=== PATIENT | male | born 1960 | race Caucasian/White ===

== ENCOUNTER → 2021-07-16 15:35 | Outpatient (BNVA) | payer OTHER, SELFPAY | PROVIDERS: Referring Provider Nurse Practitioner Family; Visit Provider Specialist | DX: G56.22 Lesion of ulnar nerve, left upper limb (principal) | CPT/HCPCS: 95908 ==

== ENCOUNTER 2022-07-02 17:35 | Outpatient (CLI) | payer OTHER, SELFPAY ==
--- NOTE | 2022-07-02 17:56 | XRR_ITS ---
PROCEDURE INFORMATION: Exam: XR Left Foot Exam date and time: 07/02/2022 5:58 PM Age: 61 years old Clinical indication: Pain; Foot; Left; Additional info: Lt. Heel pain TECHNIQUE: Imaging protocol: Radiologic exam of the Left foot. Views: 3 or more views. COMPARISON: No relevant prior studies available. FINDINGS: Bones/joints: Small osseous spur of the calcaneus. Negative for fracture. Negative for erosion. Unremarkable joint spaces. Soft tissues: Normal. XR/XR foot LT min 3V* [id number] IMPRESSION: No acute findings.
== END 2022-07-02 17:36 | disposition home or self-care (01) ==
PROVIDERS: PCP Nurse Practitioner Family; Visit Provider Nurse Practitioner Family
DX: M79.672 Pain in left foot (principal)
CPT/HCPCS: 73600; 73630

== ENCOUNTER → 2022-07-04 08:41 | Outpatient (BNVA) | payer OTHER, SELFPAY | PROVIDERS: PCP Nurse Practitioner Family; Referring Provider Family Medicine Adult Medicine; Visit Provider Student in an Organized Health Care Education/Training Program | DX: X50.9XXA Other and unspecified overexertion or strenuous movements or postures, initial encounter (principal); M72.2 Plantar fascial fibromatosis; S82.831A Other fracture of upper and lower end of right fibula, initial encounter for closed fracture | CPT/HCPCS: 73610 ==

== ENCOUNTER 2022-07-19 11:13 | Outpatient (CLI) | payer OTHER, SELFPAY ==
--- NOTE | 2022-07-19 11:50 | MR_ITS ---
WS: [id number] INDICATION: Lateral foot pain TECHNIQUE: MR of the RIGHT foot without gadolinium enhancement. Sagittal PD, sagittal STIR, axial PD, axial T1, coronal PD, coronal T2 fat sat FINDINGS: Moderate soft tissue edema worse on the lateral malleolus. Normal ankle mortise. Small oste ochondral defect involving the medial aspect of the talar dome. No significant underlying edema. Plan tar calcaneal spurring. Acute avulsion at the tip of the lateral malleolus. High-grade tears involvin g the anterior and posterior talofibular ligaments. Avulsion tip of the lateral malleolus with edema. Diffuse edema involving the distal fibula. Ankle mortise is preserved. Normal medial malleolus. Tibi ofibular ligaments appear intact. Distal Achilles is normal in appearance. Normal bone marrow signal in the calcaneus. Normal talonavic ular articulation. Normal cuboid and base of the 5th metatarsal. Normal cuneiforms. Increased signal with acute tears involving the peroneus longus and brevis. Peroneal longus tear at the level of the p eroneal tubercle. Small amount of tenosynovitis along the tibialis posterior. Extensor and flexor compartment tendons a re otherwise normal in appearance. MR/MR foot RT wo con* [id number] IMPRESSION: 1. Acute avulsion fracture with edema involving the tip of the lateral malleol us with diffuse edema involving the distal fibula and the avulsed fragment. 2. High-grade tears with diffuse edema involving the anterior and posterior ta lofibular ligaments. 3. Acute tears involving the peroneus longus and brevis. 4. Diffuse edema involving the ankle soft tissues worse about the lateral mall eolus and lateral foot soft tissues. 5. Small osteochondral defect involving the medial aspect of the talar dome. N o significant underlying edema. This may be chronic. 6. Small joint effusion. 7. Small amount of tenosynovitis along the tibialis posterior. 8. Distal Achilles appears normal. 9. Plantar calcaneal spurring.
== END 2022-07-19 11:14 | disposition home or self-care (01) ==
PROVIDERS: PCP Nurse Practitioner Family; Visit Provider Nurse Practitioner Family
DX: S99.911A Unspecified injury of right ankle, initial encounter (principal); S99.921A Unspecified injury of right foot, initial encounter; M25.474 Effusion, right foot; M65.871 Other synovitis and tenosynovitis, right ankle and foot; R60.0 Localized edema
CPT/HCPCS: 73610; 73718

== ENCOUNTER → 2023-12-29 13:09 | Outpatient (BNVA) | payer OTHER, SELFPAY | PROVIDERS: PCP Nurse Practitioner Family; Visit Provider Nurse Practitioner Family | DX: L57.0 Actinic keratosis (principal); D22.5 Melanocytic nevi of trunk; L81.4 Other melanin hyperpigmentation; L85.3 Xerosis cutis; L57.8 Other skin changes due to chronic exposure to nonionizing radiation | CPT/HCPCS: 17000; 99214 ==

== ENCOUNTER 2024-01-13 12:55 | Outpatient (CLI) | payer OTHER, SELFPAY ==
--- NOTE | 2024-01-13 13:01 | MR_ITS ---
WS: [id number] MRI HEAD WITH CONTRAST TECHNIQUE: Sagittal T1, T2 axial, T2 axial FLAIR, axial susceptibility weighted imaging, axial diffus ion weighted images, and coronal T2 images were obtained. Pre and post-T1 axial and post T1 coronal i mages. ADC and FSPGR images. CLINICAL INFORMATION: ALTERED MENTAL STATUS COMPARISON: None. FINDINGS: Patchy T2 signal normality involving the RIGHT frontal lobe and RIGHT insula compatible with edema. M ild associated localized mass effect. Mild mass effect on the RIGHT lateral ventricle. No midline flakita ft or hydrocephalus. A few small serpiginous patchy areas of enhancement within the area of edema. Ed jai extends into the RIGHT insula and RIGHT operculum. Normal posterior fossa. Normal vascular flow voids at the skull base. No extra-axial fluid collection s. Paranasal sinuses and mastoid air cells are well aerated. Normal optic chiasm and pituitary infund ibulum. Normal cavernous sinuses and Meckel's cave. IMPRESSION: 1. Moderate diffuse edema within the RIGHT posterior frontal lobe extending into the RIGHT frontal o perculum and insula with mild associated mass effect. No midline shift. Small amount of associated pa tchy enhancement. 2. Differential considerations include subacute RIGHT MCA territory infarct, infiltrative neoplasm, or lymphoma. Recommend correlation with clinical history and onset. 3. Otherwise recommend short interval follow-up to assess evolution in 6 to 8 weeks with MRI head wi thout and with gadolinium enhancement. MRA head could also be obtained at that time. 4. No other acute findings. Notified Mulu Maxwell MD at 01/13/2024 2:37 PM.
[2024-01-13] MEDS: gadobenate dimeglumine 20 mL vial IV (13:39)
== END 2024-01-13 12:56 | disposition home or self-care (01) ==
LOC: RAD 12:56
PROVIDERS: PCP Family Medicine; Visit Provider Family Medicine
DX: R41.82 Altered mental status, unspecified (principal)
CPT/HCPCS: 70553; A9577

== ENCOUNTER → 2024-02-10 14:48 | Outpatient (BNVA) | payer OTHER, SELFPAY | PROVIDERS: PCP Family Medicine; Referring Provider Family Medicine; Visit Provider Student in an Organized Health Care Education/Training Program | DX: M25.561 Pain in right knee (principal); M25.562 Pain in left knee; M17.0 Bilateral primary osteoarthritis of knee | CPT/HCPCS: 20610; 73560; 73565; 99214 ==

== ENCOUNTER 2024-02-10 16:55 | Outpatient (CLI) | payer OTHER, SELFPAY | END 2024-02-10 16:56 | disposition home or self-care (01) | LOC: SPT 16:55 | PROVIDERS: PCP Family Medicine; Visit Provider Student in an Organized Health Care Education/Training Program | DX: Z46.89 Encounter for fitting and adjustment of other specified devices (principal); M25.561 Pain in right knee; M25.562 Pain in left knee | CPT/HCPCS: 97760; L1851 ==

== ENCOUNTER → 2024-03-30 09:56 | Outpatient (BNVA) | payer OTHER, SELFPAY | PROVIDERS: PCP Family Medicine; Visit Provider Nurse Practitioner Family | DX: B00.1 Herpesviral vesicular dermatitis (principal); L57.0 Actinic keratosis; L81.4 Other melanin hyperpigmentation; D22.5 Melanocytic nevi of trunk; L57.8 Other skin changes due to chronic exposure to nonionizing radiation; L82.1 Other seborrheic keratosis; L91.8 Other hypertrophic disorders of the skin | CPT/HCPCS: 99214 ==

== ENCOUNTER → 2024-08-18 15:17 | Outpatient (BNVA) | payer OTHER, SELFPAY | PROVIDERS: PCP Family Medicine; Visit Provider Nurse Practitioner Family | DX: L81.4 Other melanin hyperpigmentation (principal); D22.5 Melanocytic nevi of trunk; L57.8 Other skin changes due to chronic exposure to nonionizing radiation; L82.1 Other seborrheic keratosis; L91.8 Other hypertrophic disorders of the skin; D48.5 Neoplasm of uncertain behavior of skin; L57.0 Actinic keratosis | CPT/HCPCS: 11102; 17000; 99213 ==

== ENCOUNTER → 2024-11-11 10:30 | Outpatient (BNVA) | payer OTHER, SELFPAY | PROVIDERS: PCP Family Medicine; Visit Provider Nurse Practitioner Family | DX: L21.8 Other seborrheic dermatitis (principal); L81.4 Other melanin hyperpigmentation; D22.5 Melanocytic nevi of trunk; L57.8 Other skin changes due to chronic exposure to nonionizing radiation; L82.1 Other seborrheic keratosis; L91.8 Other hypertrophic disorders of the skin | CPT/HCPCS: 99214 ==

== ENCOUNTER → 2025-03-11 10:36 | Outpatient (BNVA) | payer OTHER, SELFPAY | PROVIDERS: PCP Family Medicine; Visit Provider Nurse Practitioner Family | DX: L81.4 Other melanin hyperpigmentation (principal); D22.5 Melanocytic nevi of trunk; L21.8 Other seborrheic dermatitis; L30.4 Erythema intertrigo; L57.0 Actinic keratosis | CPT/HCPCS: 17000; 99213 ==

== ENCOUNTER → 2025-07-05 10:23 | Outpatient (BNVA) | payer OTHER, SELFPAY | PROVIDERS: PCP Family Medicine; Visit Provider Nurse Practitioner Family | DX: L21.8 Other seborrheic dermatitis (principal); L57.8 Other skin changes due to chronic exposure to nonionizing radiation; L30.9 Dermatitis, unspecified; L57.0 Actinic keratosis | CPT/HCPCS: 11104; 17000; 99214 ==

== ENCOUNTER → 2025-07-14 09:26 | Outpatient (BNVA) | payer OTHER, SELFPAY | PROVIDERS: PCP Family Medicine; Visit Provider Nurse Practitioner Family | DX: L27.0 Generalized skin eruption due to drugs and medicaments taken internally (principal) | CPT/HCPCS: 99213 ==